=== PATIENT | male | born 1955 | race Caucasian/White ===

== ENCOUNTER 2018-12-11 09:03 | Emergency (ER) | payer MEDICAID ==
[2018-12-11] MEDS ORDERED: TRAZODONE HCL50 MG PO (09:46)
[2018-12-11] MEDS ORDERED: CARVEDILOL6.25 MG PO (09:46)
[2018-12-11] MEDS ORDERED: POTASSIUM CHLO10 ME3 PO (09:47)
[2018-12-11] MEDS ORDERED: LISINOPRIL10 M1 PO (09:47)
[2018-12-11] MEDS ORDERED: LASIX 40 MG TAB40 MG PO (09:47)
[2018-12-11] MEDS ORDERED: ALDACTONE50 MG PO (09:47)
[2018-12-11] MEDS ORDERED: VOLTAREN1%GEL TOP (10:22)
[2018-12-11 10:33] VITALS: BP 133/81
== END 2018-12-11 10:34 | disposition home or self-care (01) ==
LOC: EDBD 09:03 → ED 09:03
DX: M79.605 Pain in left leg (principal); M79.89 Other specified soft tissue disorders; I10 Essential (primary) hypertension

== ENCOUNTER 2019-03-16 10:52 | Emergency (ER) | payer MEDICAID ==
[~2019-03-16 10:52] MED LIST: ALDACTONE50 MG PO; CARVEDILOL6.25 MG PO; LASIX 40 MG TAB40 MG PO; LISINOPRIL10 M1 PO; POTASSIUM CHLO10 ME3 PO; TRAZODONE HCL50 MG PO; VOLTAREN1%GEL TOP
[2019-03-16 11:06] VITALS: BP 132/68
[2019-03-16] MEDS ORDERED: VOLTAREN1%GEL TOP (11:12)
== END 2019-03-16 11:30 | disposition home or self-care (01) ==
LOC: ED 10:52
DX: Z76.0 Encounter for issue of repeat prescription (principal); G89.29 Other chronic pain; M25.562 Pain in left knee; I10 Essential (primary) hypertension

== ENCOUNTER 2019-04-16 09:52 | Emergency (ER) | payer MEDICAID ==
[~2019-04-16] VITALS: Ht 175.3 cm; Wt 121.8 kg
[2019-04-16] MEDS ORDERED: LISINOPRIL10 MG PO (11:58)
[2019-04-16 12:15] VITALS: BP 172/88
== END 2019-04-16 12:15 | disposition home or self-care (01) ==
LOC: ED 09:52
DX: I10 Essential (primary) hypertension (principal)

== ENCOUNTER 2019-05-28 08:54 | Emergency (ER) | payer MEDICAID ==
[~2019-05-28 08:54] MED LIST changes: +LISINOPRIL10 MG PO
[2019-05-28] MEDS ORDERED: VOLTAREN1%GEL TOP (09:15)
[2019-05-28 09:37] VITALS: BP 169/77
== END 2019-05-28 09:45 | disposition home or self-care (01) ==
LOC: ED 08:54
DX: Z76.0 Encounter for issue of repeat prescription (principal); I10 Essential (primary) hypertension

== ENCOUNTER 2019-07-05 | Emergency (ER) | payer MEDICAID ==
[2019-07-05] MEDS ORDERED: LISINOPRIL10 M1 PO (10:04)
[2019-07-05] MEDS ORDERED: AMOX/K CLAV875 M1 PO (10:10)
== END 2019-07-05 10:41 | disposition home or self-care (01) ==
DX: S51.852A Open bite of left forearm, initial encounter (principal); I10 Essential (primary) hypertension; W54.0XXA Bitten by dog, initial encounter

== ENCOUNTER 2020-12-04 13:59 | Emergency (ER) | payer MEDICAID ==
[~2020-12-04 13:59] MED LIST changes: +AMOX/K CLAV875 M1 PO
[2020-12-04] MEDS ORDERED: ZPAK PO (15:31)
[2020-12-04 15:35] VITALS: BP 152/77
== END 2020-12-04 15:35 | disposition home or self-care (01) ==
LOC: ED 13:59
DX: J40 Bronchitis, not specified as acute or chronic (principal); I10 Essential (primary) hypertension; Z20.822 Contact with and (suspected) exposure to COVID-19; Z86.16 Personal history of COVID-19

== ENCOUNTER 2021-03-21 07:14 | Emergency (ER) | payer MEDICAID ==
[~2021-03-21] VITALS: Ht 175.3 cm; Wt 145.0 kg
[~2021-03-21 07:14] MED LIST changes: +ZPAK PO
[2021-03-21 08:13] LABS: HEMATOCRIT 40.6 % (39.0-50.0); HEMOGLOBIN 13.6 g/dl (14.0-18.0); IMMATURE GRANULOCYTES 0.1 % (0.0-5.0); MEAN CELL VOLUME 105.5 fL CALC (80.0-100.0); MEAN CORPUSCULAR HGB 35.3 pG CALC (26.0-32.0); MEAN CORPUSCULAR HGB CONC 33.5 g/dL CAL (32.0-36.0); NEUT# 5.88 thou/uL (1.82-7.42); RED BLOOD COUNT 3.85 mill/uL (4.70-6.10); RED CELL DISTRI WIDTH 14.6 % (11.5-15.5)
[2021-03-21 08:22] LABS: ALBUMIN 3.5 g/dL (3.2-5.0); ALKALINE PHOSPHATASE 181 u/l (38-126); ANION GAP 8 (6-22 (CALC)); BILIRUBIN, TOTAL 1.4 mg/dL (0.0-1.4); BUN 9 mg/dL (8-23); BUN/CREATININE RATIO 19 (12-20 (CALC)); CARBON DIOXIDE 28 mmol/l (22-30); CHLORIDE 103 mmol/l (95-108); CREATININE 0.5 mg/dL (0.7-1.3); GFR > 60 ML/MIN (>=60 (CALC)); GFR FOR AFR.AMER. > 60 ML/MIN (>=60 (CALC)); POTASSIUM 4.1 mmol/l (3.5-5.1); SGOT/AST 78 u/l (19-48); SODIUM 135 mmol/l (137-146); TOTAL PROTEIN 7.2 g/dL (6.3-8.2)
[2021-03-21] MEDS ORDERED: OMNI-PAC300 MG PO (09:10)
[2021-03-21 09:31] VITALS: BP 156/64
== END 2021-03-21 09:41 | disposition home or self-care (01) ==
LOC: ED 07:14
PROVIDERS: Family Medicine
DX: L03.116 Cellulitis of left lower limb (principal); I10 Essential (primary) hypertension; E66.01 Morbid (severe) obesity due to excess calories; Z68.42 Body mass index [BMI] 45.0-49.9, adult